=== PATIENT | male | born 1990 | race Caucasian/White ===

== ENCOUNTER 2016-10-19 18:36 | Emergency (ER) | payer OTHER ==
[~2016-10-19] VITALS: Ht 175.3 cm; Wt 72.1 kg
[2016-10-19 18:42] VITALS: BP 153/85
--- NOTE | 2016-10-19 19:23 | NUR ---
AMBULATED TO ER BED 3
--- NOTE | 2016-10-19 19:25 | NUR ---
26 YEAR OLD MALE WITH C/O HEADACHE X1 MONTH. COMES AND GO, CONFUSED SOMETIMES. NO S/S OF DISTRESS, DENIES DIZZINESS, HX OF ANXIETY.
--- NOTE | 2016-10-19 19:49 | NUR ---
Patient being evaluated by physician at bedside.
[2016-10-19] MEDS ORDERED: KETOROLAC 60 MG/2 ML VIAL IM ONE (20:05)
[2016-10-19] MEDS ORDERED: LORazepam 1 MG TAB PO ONE (20:05)
--- NOTE | 2016-10-19 20:21 | NUR ---
TRANSFER TO CT
--- NOTE | 2016-10-19 20:45 | NUR ---
BACK FROM CT
--- NOTE | 2016-10-19 21:25 | NUR ---
Patient discharged with v/s stable. Written and verbal after care instructions given and explained. Patient alert, oriented and verbalized understanding of instructions. Ambulatory with steady gait. All questions addressed prior to discharge. ID band removed. Patient advised to follow up with PMD. Rx of MOTRIN 600 MG, XANAX 0.5 MG given. Patient educated on indication of medication including possible reaction and side effects. Opportunity to ask questions provided and answered.
[2016-10-19 21:28] VITALS: BP 136/90
== END 2016-10-19 21:25 | disposition home or self-care (01) ==
LOC: MED 18:36
DX: F41.9 Anxiety disorder, unspecified (principal); R51 Headache; R03.0 Elevated blood-pressure reading, without diagnosis of hypertension; E03.9 Hypothyroidism, unspecified
CPT/HCPCS: 70450; 96372; 99284; J1885

== ENCOUNTER 2016-12-04 01:07 | Emergency (ER) | payer SELFPAY ==
--- NOTE | 2016-12-04 01:13 | NUR ---
PATIENT LEFT WITHOUT BEING SEEN BY DR. SOFIA. NO FURTHER CARE PROVIDED FOR PATIENT.
== END 2016-12-04 01:13 | disposition left against medical advice (07) ==
LOC: MED 01:07
DX: R42 Dizziness and giddiness (principal); Z53.21 Procedure and treatment not carried out due to patient leaving prior to being seen by health care provider

== ENCOUNTER 2022-01-12 21:36 | Emergency (ER) | payer OTHER ==
[~2022-01-12] VITALS: Ht 177.8 cm; Wt 95.3 kg
[2022-01-12 21:38] VITALS: BP 148/94
--- NOTE | 2022-01-12 21:38 | NUR ---
BIBA TAKEN TO BED #8
--- NOTE | 2022-01-12 21:55 | NUR ---
DR. JAMES AT BEDSIDE FOR EVALUATION
[2022-01-12] MEDS ORDERED: NACL 0.9% 1,000 ML IV ONE (22:00)
--- NOTE | 2022-01-12 22:00 | NUR ---
31/M BIBA FROM HOME C/O ALOC S/P INGESTION OF "SHROOMS" AND "ALOT OF ALCOHOL" AT UNKNOWN TIME. PATIENT UNABLE TO STATED WHAT TYPE OF ALCOHOL WAS CONSUMED AT THIS TIME. RR EVEN AND UNLABORED. NO S/S RR DISTRESS. PATIENT PLACED IN A GOWN. BED LOW AND LOCKED. [employer] SIDE RAILS FOR SAFETY. PROVIDED URINAL. CALL LIGHT IN REACH. ALL NEEDS MET AT THIS TIME. MEDHX- SCHIZOPHRENIA, HTN NKA
--- NOTE | 2022-01-12 22:09 | NUR ---
blood collected and walked to lab
--- NOTE | 2022-01-12 22:09 | NUR ---
18G IV ESTABLISHED TO RT AC. BLOOD DRAWN VIA IV START
--- NOTE | 2022-01-12 22:10 | NUR ---
URINE COLLECTED AND WALKED TO LAB
[2022-01-12 22:22] LABS: BASOPHILS # (AUTO) 0.1 K/uL (0.00-0.22); BASOPHILS % (AUTO) 0.9 % (0.0-2.0); EOSINOPHILS % (AUTO) 0.5 % (0.0-4.0); HEMATOCRIT 46.1 % (36-52); HEMOGLOBIN 15.9 g/dL (12.0-18.0); LYMPHOCYTES % (AUTO) 27.2 % (20.5-51.1); MEAN CORPUSCULAR HEMOGLOBIN 34 pg (27-31); MEAN CORPUSCULAR HGB CONC 34 g/dL (33-37); MEAN CORPUSCULAR VOLUME 97.3 fL (80-94); MONOCYTES # (AUTO) 0.5 K/uL (0.8-1.0); MONOCYTES % (AUTO) 7.5 % (1.7-9.3); NEUTROPHILS # (AUTO) 4.6 K/uL (1.8-7.7); NEUTROPHILS % (AUTO) 63.9 % (42.2-75.2); PLATELET COUNT (AUTO) 273 K/uL (140-450); RED BLOOD CELL COUNT(AUTO) 4.74 MIL/uL (4.20-6.10); WHITE BLOOD COUNT (AUTO) 7.2 K/uL (4.8-10.8)
--- NOTE | 2022-01-12 22:30 | NUR ---
PATIENT AAOX4, ASKING WHEN HE CAN GO HOME. SITTING IN BED QUIETLY. BED LOW AND LOCKED. C[employer] SIDE RAILS UP FOR SAFETY. ALL NEEDS MET AT THIS TIME.
[2022-01-12 22:41] LABS: ALBUMIN 3.7 g/dL (3.4-5.0); ASPARTATE AMINOTRANSFERASE 76 U/L (15-37); CARBON DIOXIDE 24.9 mmol/L (21-32); CHLORIDE 103 mmol/L (98-107); CREATININE 0.8 mg/dL (0.6-1.3); GFR ARICAN-AMERICAN 145 mL/min (>90); GLUCOSE 109 mg/dL (74-106); SODIUM SERUM 138 mmol/L (136-145); TOTAL BILIRUBIN 0.2 mg/dL (0.0-1.0); UREA NITROGEN, BLOOD 4 mg/dL (7-18)
[2022-01-12 22:45] LABS: BARBITURATE, URINE NEGATIVE ng/ml (NEG <=200); BENZODIAZEPINE, URINE NEGATIVE ng/mL (NEG <=200); CANNABINOID, URINE NEGATIVE ng/mL (NEG <=50); COCAINE, URINE NEGATIVE ng/mL (NEG <=300); OPIATE, URINE NEGATIVE ng/mL (NEG <=2000); PHENCYCLIDINE SCREEN,URINE NEGATIVE ng/mL (NEG <=25)
[2022-01-12 23:02] LABS: POTASSIUM 2.9 mmol/L (3.5-5.1); SALICYLATE < 2.8 mg/dL (2.8-20.0)
--- NOTE | 2022-01-13 02:21 | NUR ---
PATIENT IN BED RESTING, ASKING HOW LONG HE WILL BE IN BED. BED LOW AND LOCKED. C[employer] SIDE RAILS FOR SAFETY. ALL NEEDS MET.
--- NOTE | 2022-01-13 04:00 | NUR ---
PROVIDED WATER FOR PATIENT. IN BED , BED LOW AND LOCKED. ALL NEEDS MET.
--- NOTE | 2022-01-13 04:30 | NUR ---
PATIENT ABLE TO AMBULATE WITHOUT DIFFICULTY AT THIS TIME. STATED THAT HE REMEMBERS DRINKING TOO MUCH LAST NIGHT, AND THE AMBULANCE PICKING HIM UP. PATIENT AAOX4, AND ASKED FOR WATER. PATIENT CALM AND RESTING IN BED. BED LOW AND LOCKED. SIDE RAIL UP FOR SAFETY.
--- NOTE | 2022-01-13 05:00 | NUR ---
PATIENT ASKED TO CALL MOTHER TO PICK HIM UP. MOTHER ANSWERED AND SAID SHE WAS ON HER WAY.
[2022-01-13 05:10] VITALS: BP 102/58
--- NOTE | 2022-01-13 05:10 | NUR ---
Patient discharged with v/s stable. Written and verbal after care instructions given and explained. Patient verbalized understanding. Ambulatory with steady gait.Advised to follow up with PMD.
--- NOTE | 2022-01-13 05:47 | NUR ---
The patient's care was reviewed and supervised by Marly Burk RN.
== END 2022-01-13 05:10 | disposition home or self-care (01) ==
LOC: MED 21:36
DX: F10.129 Alcohol abuse with intoxication, unspecified (principal); F19.10 Other psychoactive substance abuse, uncomplicated; R40.1 Stupor; I10 Essential (primary) hypertension; E03.9 Hypothyroidism, unspecified; F20.9 Schizophrenia, unspecified; F17.210 Nicotine dependence, cigarettes, uncomplicated; F12.90 Cannabis use, unspecified, uncomplicated; F15.90 Other stimulant use, unspecified, uncomplicated; Y90.7 Blood alcohol level of 200-239 mg/100 ml
CPT/HCPCS: 36415; 80053; 80305; 85025; 93005; 96360; 99284; G0480; G0482; J7030

== ENCOUNTER 2022-12-15 11:28 | Emergency (ER) | payer OTHER ==
[~2022-12-15] VITALS: Ht 177.8 cm; Wt 81.6 kg
[2022-12-15 11:35] VITALS: BP 132/87
--- NOTE | 2022-12-15 11:44 | NUR ---
AMBULATED TO BED 7
--- NOTE | 2022-12-15 11:53 | NUR ---
32 yo/m presents to ED w c/o yellowing of the skin and eyes x a few days, +int episodes of vomiting after meals x1 year which pt related to hx of hiatal hernia. pt denies blood in emesis or stools. pt report history of alcohol drinking everyday x10 years, denies drug use. pmh: htn, fatty liver, hiatal hernia allergies: denies
[2022-12-15 12:23] LABS: APPEARANCE,URINE CLEAR (CLEAR); BILIRUBIN,URINE 3+ (NEGATIVE); BLOOD, URINE NEGATIVE (NEGATIVE); COLOR,URINE YELLOW (YELLOW); LEUKOCYTE ESTERASE ,URINE NEGATIVE (NEGATIVE); NITRITE, URINE NEGATIVE (NEGATIVE); PH,URINE 6.5 (5.0-9.0); UGLUCOSE TRACE (NEGATIVE)
[2022-12-15 13:19] LABS: PROTHROMBIN TIME 15.3 secs (10.8-13.4)
[2022-12-15 13:27] LABS: BASOPHILS # (AUTO) 0.1 K/uL (0.00-0.22); BASOPHILS % (AUTO) 0.9 % (0.0-2.0); EOSINOPHILS % (AUTO) 0.4 % (0.0-4.0); HEMATOCRIT 35.1 % (36-52); HEMOGLOBIN 12.2 g/dL (12.0-18.0); LYMPHOCYTES # (AUTO) 1.1 K/uL (2.0-11.5); LYMPHOCYTES % (AUTO) 19.3 % (20.5-51.1); MEAN CORPUSCULAR HEMOGLOBIN 36 pg (27-31); MEAN CORPUSCULAR HGB CONC 35 g/dL (33-37); MEAN CORPUSCULAR VOLUME 102.4 fL (80-94); MONOCYTES # (AUTO) 0.9 K/uL (0.8-1.0); MONOCYTES % (AUTO) 15.7 % (1.7-9.3); NEUTROPHILS # (AUTO) 3.7 K/uL (1.8-7.7); NEUTROPHILS % (AUTO) 63.7 % (42.2-75.2); PLATELET COUNT (AUTO) 175 K/uL (140-450); RED BLOOD CELL COUNT(AUTO) 3.43 MIL/uL (4.20-6.10); RED CELL DISTRIBUTION WIDTH 14.5 % (11.6-13.7); WHITE BLOOD COUNT (AUTO) 5.8 K/uL (4.8-10.8)
[2022-12-15 13:29] LABS: WBC,URINE 0-5 /HPF (0-5)
[2022-12-15 14:09] LABS: ALBUMIN 2.5 g/dL (3.4-5.0); ANION GAP 12.1 (8-16); CARBON DIOXIDE 27.2 mmol/L (21-32); CREATININE 0.7 mg/dL (0.6-1.3); POTASSIUM 3.3 mmol/L (3.5-5.1); TOTAL BILIRUBIN 9.3 mg/dL (0.0-1.0)
[2022-12-15 14:36] VITALS: BP 132/87
--- NOTE | 2022-12-15 14:36 | NUR ---
Patient discharged with v/s stable. Written and verbal after care instructions given and explained. Patient verbalized understanding. Ambulatory with steady gait. All questions addressed prior to discharge. Advised to follow up with PMD.
--- NOTE | 2022-12-15 14:36 | NUR ---
IV removed, catheter intact and site benign. Applied folded 4x4 gauze and tape to stop bleeding.
[2022-12-16 10:07] LABS: HEPATITIS A ANTIBODY IGM Negative (Negative); HEPATITIS B SURFACE ANTIGEN Negative (Negative); HEPATITIS C AB Non Reactive (Non Reactive)
== END 2022-12-15 14:36 | disposition home or self-care (01) ==
LOC: MED 11:28
DX: R17 Unspecified jaundice (principal); D53.9 Nutritional anemia, unspecified; F10.20 Alcohol dependence, uncomplicated; I10 Essential (primary) hypertension; E03.9 Hypothyroidism, unspecified; F17.210 Nicotine dependence, cigarettes, uncomplicated; Y90.9 Presence of alcohol in blood, level not specified
CPT/HCPCS: 36415; 76705; 80053; 81001; 83690; 85025; 85610; 86704; 86709; 86804; 87340; 99284; Q0092; 87522

== ENCOUNTER 2022-12-25 08:25 | Emergency (ER) | payer OTHER ==
[~2022-12-25] VITALS: Ht 172.7 cm; Wt 89.4 kg
[2022-12-25 08:34] VITALS: BP 126/86
--- NOTE | 2022-12-25 08:44 | NUR ---
pt ambulatory, steady gait, to bed 6, unable to provide urine at this time
--- NOTE | 2022-12-25 08:51 | NUR ---
Patient being evaluated by physician at bedside.
--- NOTE | 2022-12-25 09:26 | NUR ---
PT WC ASSISTED TO CT
--- NOTE | 2022-12-25 09:36 | NUR ---
PT RETURNED FROM CT
--- NOTE | 2022-12-25 09:51 | NUR ---
Lab at bedside
[2022-12-25 10:18] LABS: HEMATOCRIT 33.9 % (36-52); HEMOGLOBIN 11.8 g/dL (12.0-18.0); MEAN CORPUSCULAR HEMOGLOBIN 35 pg (27-31); MEAN CORPUSCULAR HGB CONC 35 g/dL (33-37); MEAN CORPUSCULAR VOLUME 102.1 fL (80-94); PLATELET COUNT (AUTO) 249 K/uL (140-450); RED BLOOD CELL COUNT(AUTO) 3.33 MIL/uL (4.20-6.10); RED CELL DISTRIBUTION WIDTH 16.7 % (11.6-13.7); WHITE BLOOD COUNT (AUTO) 8.4 K/uL (4.8-10.8)
[2022-12-25 10:31] LABS: ALBUMIN 1.9 g/dL (3.4-5.0); ANION GAP 11.9 (8-16); CARBON DIOXIDE 25.9 mmol/L (21-32); CREATININE 0.8 mg/dL (0.6-1.3); POTASSIUM 3.8 mmol/L (3.5-5.1); TOTAL BILIRUBIN 14.5 mg/dL (0.0-1.0)
--- NOTE | 2022-12-25 10:48 | NUR ---
DR RUBI AT BEDSIDE FOR REEVAL
[2022-12-25 11:08] LABS: EOSINOPHILS % (MANUAL) 1 % (0-4); LYMPHOCYTES % (MANUAL) 32 % (20-46); MONOCYTES % (MANUAL) 7 % (5-12)
[2022-12-25 11:09] LABS: BASOPHILS % (MANUAL) 2 % (0-2)
[2022-12-25] MEDS ORDERED: METO-485 PO (11:48)
[2022-12-25 12:05] VITALS: BP 126/86
--- NOTE | 2022-12-25 12:06 | NUR ---
Patient discharged with v/s stable. Written and verbal after care instructions given and explained. Patient alert, oriented and verbalized understanding of instructions. Ambulatory with steady gait. All questions addressed prior to discharge. ID band removed. Patient advised to follow up with PMD. Rx of Raglan given. Patient educated on indication of medication including possible reaction and side effects. Opportunity to ask questions provided and answered.
== END 2022-12-25 12:06 | disposition home or self-care (01) ==
LOC: MED 08:25
DX: K70.10 Alcoholic hepatitis without ascites (principal); E80.6 Other disorders of bilirubin metabolism; K52.9 Noninfective gastroenteritis and colitis, unspecified; R17 Unspecified jaundice; I10 Essential (primary) hypertension; E03.9 Hypothyroidism, unspecified; Z79.899 Other long term (current) drug therapy
CPT/HCPCS: 36415; 80053; 83690; 85025; 99284

== ENCOUNTER 2023-01-07 02:50 | Emergency (ER) | payer OTHER ==
[~2023-01-07] VITALS: Ht 177.8 cm; Wt 92.5 kg
[~2023-01-07 02:50] MED LIST: METO-485 PO
[2023-01-07 02:53] VITALS: BP 133/82
--- NOTE | 2023-01-07 03:31 | NUR ---
ASSUMED CARE . PT C/O ABDO DISTENTION , JAUNDICE, GEN ANASARCA, 4+ PITTING EDEMA, , NO N/V/ A/.O X4
[2023-01-07 03:41] LABS: BASOPHILS # (AUTO) 0.1 K/uL (0.00-0.22); BASOPHILS % (AUTO) 0.6 % (0.0-2.0); EOSINOPHILS # (AUTO) 0.2 K/uL (0-0.4); HEMATOCRIT 34.7 % (36-52); MEAN CORPUSCULAR HEMOGLOBIN 36 pg (27-31); MEAN CORPUSCULAR HGB CONC 35 g/dL (33-37); MEAN CORPUSCULAR VOLUME 104.9 fL (80-94); MONOCYTES # (AUTO) 1.6 K/uL (0.8-1.0); MONOCYTES % (AUTO) 9.7 % (1.7-9.3); NEUTROPHILS # (AUTO) 11.6 K/uL (1.8-7.7); NEUTROPHILS % (AUTO) 70.7 % (42.2-75.2); PLATELET COUNT (AUTO) 261 K/uL (140-450); RED CELL DISTRIBUTION WIDTH 16.9 % (11.6-13.7); WHITE BLOOD COUNT (AUTO) 16.4 K/uL (4.8-10.8)
[2023-01-07 04:17] LABS: PROTHROMBIN TIME 30.1 secs (10.8-13.4)
[2023-01-07 04:18] LABS: CARBON DIOXIDE 25.8 mmol/L (21-32); CREATININE 1.1 mg/dL (0.6-1.3); POTASSIUM 3.8 mmol/L (3.5-5.1)
[2023-01-07 04:19] LABS: ALBUMIN 1.8 g/dL (3.4-5.0); TOTAL BILIRUBIN 22.3 mg/dL (0.0-1.0)
[2023-01-07] MEDS ORDERED: MORPHINE SULFATE 4 MG/ML SYR IVP ONE (05:15)
--- NOTE | 2023-01-07 05:45 | NUR ---
AT TO DISCUSS THE NEED OF DOING PARACENTESIS WITH PT , RISK AND BENEFITS DISCUSSED , PT VERB UNDERSTANDING AGREED TO PROCEED, PREMEDICATED PT BEFORE PROCEDURE [facility] WELL
--- NOTE | 2023-01-07 06:51 | NUR ---
PARACENTESIS COMPLETED WITH SOME DIFFICULTY , DRAINED 1800 ML OF ASCITIC FLUID, BP WNL
--- NOTE | 2023-01-07 07:21 | NUR ---
report given to ayden carranza
[2023-01-07 07:41] VITALS: BP 118/65
--- NOTE | 2023-01-07 07:41 | NUR ---
Patient discharged with v/s stable. Written and verbal after care instructions given. Patient verbalized understanding. Ambulatory with steady gait. All questions addressed prior to discharge. Advised to follow up with PMD.
--- NOTE | 2023-01-07 08:29 | NUR ---
The patient's care was reviewed and supervised by ED Agency Nurse 8, RN, RN.
== END 2023-01-07 07:41 | disposition home or self-care (01) ==
LOC: MED 02:50
DX: R18.8 Other ascites (principal); K70.9 Alcoholic liver disease, unspecified; E80.6 Other disorders of bilirubin metabolism; I10 Essential (primary) hypertension; E03.9 Hypothyroidism, unspecified; Z79.899 Other long term (current) drug therapy; Z98.890 Other specified postprocedural states
CPT/HCPCS: 36415; 49083; 80053; 85025; 85610; 85730; 96374; 99285; J2270